=== PATIENT | female | born 1995 | race Caucasian/White ===

== ENCOUNTER → 2017-10-12 | Emergency (ER) | payer OTHER ==
[~2017-10-12] VITALS: Ht 162.6 cm; Wt 84.8 kg
== END | disposition left against medical advice (07) ==
LOC: ER 13:06
DX: Z53.20 Procedure and treatment not carried out because of patient's decision for unspecified reasons (principal)

== ENCOUNTER 2019-07-24 16:52 | Emergency (ER) | payer OTHER ==
[~2019-07-24] VITALS: Ht 162.6 cm; Wt 70.3 kg
[2019-07-24] MEDS ORDERED: FORTAMET500 MG (17:15)
== END 2019-07-24 21:09 | disposition home or self-care (01) ==
LOC: ER 16:52
DX: J06.9 Acute upper respiratory infection, unspecified (principal); B96.0 Mycoplasma pneumoniae [M. pneumoniae] as the cause of diseases classified elsewhere

== ENCOUNTER 2019-11-06 04:47 | Emergency (ER) | payer OTHER ==
[~2019-11-06] VITALS: Ht 162.6 cm; Wt 86.2 kg
[~2019-11-06 04:47] MED LIST: FORTAMET500 MG
[2019-11-06] MEDS ORDERED: KETO10TA2 PO (05:50)
== END 2019-11-06 05:53 | disposition home or self-care (01) ==
LOC: ER 04:47
DX: H92.01 Otalgia, right ear (principal)

== ENCOUNTER 2019-11-12 11:04 | Emergency (ER) | payer OTHER ==
[~2019-11-12] VITALS: Ht 162.6 cm; Wt 83.9 kg
[~2019-11-12 11:04] MED LIST changes: +KETO10TA2 PO
== END 2019-11-12 16:42 | disposition home or self-care (01) ==
LOC: ER 11:04
DX: K08.89 Other specified disorders of teeth and supporting structures (principal); R60.0 Localized edema

== ENCOUNTER 2020-12-30 11:56 | Emergency (ER) | payer OTHER ==
[~2020-12-30] VITALS: Ht 162.6 cm; Wt 86.2 kg
[2020-12-30] MEDS ORDERED: ZITHROMAX500 MG PO (17:20)
[2020-12-30] MEDS ORDERED: IPRAT-ALBUT 0.5-3 ML IH (17:20)
[2020-12-30] MEDS ORDERED: MEDROLPACK PO (17:20)
[2020-12-30] MEDS ORDERED: MUCINEX DM ER1 EAC1 PO (17:20)
[2020-12-30] MEDS ORDERED: BUDESONIDE0.5 MG/2 M IH (17:20)
[2020-12-30] MEDS ORDERED: TESSALON PERLE100 M1 PO (17:20)
== END 2020-12-30 18:21 ==
LOC: ER 11:56
DX: J45.901 Unspecified asthma with (acute) exacerbation (principal); J06.9 Acute upper respiratory infection, unspecified